=== PATIENT | male | born 1990 | race Caucasian/White ===

== ENCOUNTER 2021-02-07 00:03 | Emergency (ER) | payer BC ==
[~2021-02-07] VITALS: Ht 170 cm; Wt 90.0 kg
[~2021-02-07 00:03] MED LIST: CEPH500C PO
[2021-02-07] MEDS ORDERED: FLUORESCEIN (FLUOR-I-STRIPS) 1 MG STRP OU ONE (00:15)
[2021-02-07] MEDS ORDERED: BSS 15 ML IR ONE (00:15)
[2021-02-07] MEDS ORDERED: TETRACAINE 0.5% OPHTH SOLN 4 ML BTL (SINGLE DOSE ONLY) OU ONE (00:15)
--- NOTE | 2021-02-07 00:30 | ED EENT ---
History of Present Illness General Chief Complaint: Eye Problems Stated Complaint: EYE PAIN,BURNING Nursing Triage Note: PT ARRIVES TO ER WITH C/O L EYE PAIN THAT BEGAN YESTERDAY MORNING. PT DOES WEAR CONTACTS DAILY. 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 PT DOES WEAR CONTACTS DAILY, AND SLEEPS IN THEM, AND WEARS SAME PAIR FOR LONG PERIODS OF TIME STATES HE PUT A NEW PAIR IN 3-4 DAYS AGO NO MATTING OR PURULENT DRAINAGE FROM EYE, BUT IT IS WATERING ALOT NO KNOWN EXPOSURE TO PINK EYE PT HAS HAD A CORNEAL ABRASION IN THE PAST, FROM WEARING CONTACTS AND SCRATCHING HIS EYE AND THIS FEELS SIMILAR WENT TO [facility] W[facility] ON THURSDAY AND WAS TOLD THEY "REALLY DIDN'T FIND ANYTHING" BUT PUT HIM ON POLYTRIM DROPS STATES PAIN AND REDNESS AND WATERING HAS BECOME MUCH WORSE SINCE STARTING THAT MEDICATION CONSIGNEE: DR. BARROS Allergies and Home Medications Allergies Coded Allergies: No Known Drug Allergies (Unverified Allergy, Mild, 08/20/08) Patient Home Medication List Home Medication List Reviewed: Yes Cephalexin Monohydrate (Cephalexin) 500 Mg Capsule, 1 EACH PO TID Prescribed by: SHABBIR SIMON on 03/14/14 0003 Review of Systems Review of Systems Constitutional: no symptoms reported Eyes: See HPI Neurological: No Symptoms Reported Past Ehgakjm-Btcvru-Dbyaox Hx Patient Social History Tobacco Use?: Yes Tobacco type used: Cigarettes Smoking Status: Current Everyday Smoker Substance use?: No Alcohol Use?: Yes Alcohol type: Beer Alcohol Frequency: Rarely Immunizations Up To Date Tetanus Booster (TDap): Less than 5yrs Influenza Vaccine Up-to-Date: No; Not Current Seasonal Allergies Seasonal Allergies: No Past Medical History Surgeries: No Respiratory: No Cardiac: No Neurological: No Reproductive Disorders: No Sexually Transmitted Disease: No HIV/AIDS: No Genitourinary: No Gastrointestinal: No Musculoskeletal: No Endocrine: No HEENT: Yes (CONTACTS; CORNEAL ABRASION) Cancer: No Psychosocial: No Integumentary: No Blood Disorders: No Adverse Reaction/Blood Tranf: No Physical Exam Vital Signs Vital Signs - First Documented 02/07/21 00:16 Temp 36.4 Pulse 68 Resp 18 B/P (MAP) 146/101 (116) Pulse Ox 98 O2 Delivery Room Air Height, Weight, BMI Height: 5'7" Weight: 180lbs. oz. 81.732985nu; 31.00 BMI Method:Stated General Appearance: WD/WN, no apparent distress Eyes: left eye other (LEFT CONJUNCTIVA MARKEDLY INFLAMED, WITH MUCH TEARING. NO PURULENT DISCHARGE. NO SUBCONJUNCTIVAL HEMORRHAGE OR HYPHEMA. NO OBVIOUS FOREIGN BODY) Neurologic/Psychiatric: fitness supervisor II-XII nml as tested Procedures/Interventions Eye : Location: left eye Anesthesia (gtts): Tetracaine Progress/Procedure Conclusion FLUORESCEIN STAIN WITH TINY UPTAKE AT 6:00 --INFERIOR ASPECT OF PUPIL NO FOREIGN BODY IDENTIFIED Progress/Results/Core Measures Results/Orders My Orders Orders - CONSUELO YOUNG DO Tetracaine 0.5% Ophth Monse Sdv (Tetracai (02/07/21 00:15) Fluorescein Strips ([id number]) (02/07/21 00:15) Balanced Salt Irrigation Soln (Bss Irrig (02/07/21 00:15) Rx-Hydrocodone/Apap 5-325 Mg (Rx-Vicodin (02/07/21 00:30) Erythromycin Ophth Oint (Erythromycin Op (02/07/21 06:00) Medications Given in ED Current Medications Medications Dose Ordered Sig/Melvin Route Start Time Stop Time Status Last Admin Dose Admin Fluorescein Sodium 1 mg ONCE ONCE OU 02/07/21 00:15 02/07/21 00:17 DC 02/07/21 00:25 1 MG Tetracaine HCl 4 ml ONCE ONCE OU 02/07/21 00:15 02/07/21 00:17 DC 02/07/21 00:25 4 ML Vital Signs/I&O 02/07/21 00:16 Temp 36.4 Pulse 68 Resp 18 B/P (MAP) 146/101 (116) Pulse Ox 98 O2 Delivery Room Air Blood Pressure Mean: 116 Departure Impression Primary Impression: Left corneal abrasion Disposition: 01 HOME, SELF-CARE Condition: Stable Departure-Patient Inst. Decision time for Depature: 00:28 Referrals: MICHAEL SALCEDO DO (PCP/Family) Primary Care Physician Patient Instructions: Corneal Abrasion ED Add. Discharge Instructions: STOP CURRENT EYE DROP DO NOT RUB YOUR EYES DO NOT PUT ANYTHING EXCEPT PRESCRIBED MEDICATION IN YOUR EYE MOTRIN 800 MG EVERY 4 HOURS NEEDED FOR PAIN FOLLOW UP WITH YOUR EYE DR LATER TODAY OR TOMORROW MORNING FOR FURTHER CARE--CALL LATER THIS MORNING TO SCHEDULE APPOINTMENT All discharge instructions reviewed with patient and/or family. Voiced understanding. Work/School Note: Work Release Form Date Seen in the Emergency Department: Feb 07, 2021 Restrictions: Need Release from Doctor CONSUELO YOUNG DO Feb 07, 2021 00:30
[2021-02-07] MEDS ORDERED: ERYTHROMYCIN OPHTH OINT 1 GM (SINGLE USE) TUBE ONE (00:31)
[2021-02-07 00:40] VITALS: BP 146/101
[2021-02-07] MEDS ORDERED: ERYTHROMYCIN OPHTH OINT 1 GM (SINGLE USE) TUBE OP SCH (06:00)
== END 2021-02-07 00:40 | disposition home or self-care (01) ==
LOC: EDUNIT# 00:03 → ER 00:09
DX: S05.02XA Injury of conjunctiva and corneal abrasion without foreign body, left eye, initial encounter (principal); F17.210 Nicotine dependence, cigarettes, uncomplicated; X58.XXXA Exposure to other specified factors, initial encounter
CPT/HCPCS: 99283